=== PATIENT | female | born 1985 | race Caucasian/White ===

== ENCOUNTER 2017-02-10 19:53 | Emergency (ER) | payer MEDICAID ==
[~2017-02-10] VITALS: Ht 154.9 cm; Wt 76.2 kg
[2017-02-10 19:58] VITALS: BP 108/40
--- NOTE | 2017-02-10 20:25 | NUR ---
Patient eloped from facility. ER MD notified.
== END 2017-02-10 20:27 | disposition left against medical advice (07) ==
LOC: ER 19:57
DX: Z53.21 Procedure and treatment not carried out due to patient leaving prior to being seen by health care provider (principal)
CPT/HCPCS: A4606; Z7610